=== PATIENT | male | born 1940 | race Caucasian/White ===

== ENCOUNTER 2021-04-10 08:00 | Outpatient (CLI) | payer MEDICARE, OTHER | END 2021-04-10 23:59 | disposition home or self-care (01) | LOC: LAB.S 08:00 | PROVIDERS: ATTEND Physician Assistant | DX: N39.0 Urinary tract infection, site not specified (principal) | CPT/HCPCS: 87086 ==

== ENCOUNTER 2021-07-23 08:08 | Outpatient (CLI) | payer MEDICARE, OTHER | END 2021-07-23 08:09 | disposition critical access hospital (66) | LOC: EMS 08:08 | DX: R41.0 Disorientation, unspecified (principal) | CPT/HCPCS: A0425; A0429 ==

== ENCOUNTER 2021-07-23 08:54 | Emergency (ER) | payer MEDICARE, OTHER ==
[2021-07-23] MEDS: SODIUM CHLORIDE 0.9% 1,000 ML IV STA (09:33)
[2021-07-23 09:36] LABS: BASOPHILS % (AUTO) 0.6 %; EOSINOPHILS # (AUTO) 0.1 10^3/uL (0.0-0.7); EOSINOPHILS % (AUTO) 2.5 %; HCT - HEMATOCRIT 39.5 % (42.0-52.0); HGB - HEMOGLOBIN 13.7 g/dL (14.0-18.0); LYMPHOCYTES # (AUTO) 1.2 10^3/uL (1.5-3.5); LYMPHOCYTES % (AUTO) 23.6 %; MEAN CORPUSCULAR HEMOGLOBIN 32.7 pg (27.0-31.0); MEAN CORPUSCULAR HGB CONC 34.7 g/dL (32.0-36.0); MEAN CORPUSCULAR VOLUME 94.3 fL (80.0-94.0); MEAN PLATELET VOLUME 10.9 fL (7.4-11.4); MONOCYTES # (AUTO) 0.5 10^3/uL (0.0-1.0); NEUTROPHILS # (AUTO) 3.3 10^3/uL (1.5-6.6); NEUTROPHILS % (AUTO) 62.9 %; PLT - PLATELET COUNT 173 10^3/uL (130-450); RED BLOOD COUNT 4.19 10^6/uL (4.70-6.10); RED CELL DISTRIBUTION WIDTH 12.6 % (12.0-15.0); WHITE BLOOD COUNT 5.2 x10^3/uL (4.8-10.8)
[2021-07-23 09:53] LABS: ALBUMIN 3.7 g/dL (3.2-5.5); ALBUMIN/GLOBULIN RATIO 1.5 (1.0-2.2); CALCIUM 8.8 mg/dL (8.5-10.3); CREATININE 0.4 mg/dL (0.6-1.2); MAGNESIUM 1.6 mg/dL (1.7-2.8); POTASSIUM 3.9 mmol/L (3.5-5.0); TOTAL PROTEIN 6.2 g/dL (6.7-8.2)
--- NOTE | 2021-07-23 10:15 | CT Report ---
PROCEDURE: HEAD WO INDICATIONS: general weakness/confused this morning TECHNIQUE: Noncontrast 4.5 mm thick angled axial sections acquired from the foramen magnum to the vertex. For r adiation dose reduction, the following was used: automated exposure control, adjustment of mA and/or kV according to patient size. COMPARISON: None. FINDINGS: Image quality: Excellent. CSF spaces: Basal cisterns are patent. Ventricles and sulci are enlarged, consistent with diffuse p arenchymal volume loss. Areas of focal sulcal enlargement are seen in the right frontoparietal region , the left medial frontal lobe, and the left parieto-occipital sulcus. Findings may secondary to gene ralized volume loss versus congenital abnormality such as arachnoid cysts or less likely areas of chr onic encephalomalacia given the intact appearance of the adjacent cortex. Brain: No midline shift. No acute intracranial hemorrhage or mass effect. Hypodensities in the subco rtical and periventricular white matter most commonly seen in setting of chronic microvascular ischem ic changes. Skull and face: Calvarium and visualized facial bones are intact, without suspicious lesions. Sinuses: Visualized sinuses and mastoids are clear. IMPRESSION: 1.No acute intracranial abnormality. 2.Chronic microvascular ischemic changes. 3.Diffuse cerebral volume loss with ventricular and sulcal prominence. 4.Areas of focal, predominantly interlobar sulcal enlargement bilaterally are most likely due to gene ralized volume loss versus less likely focal extra-axial fluid collections such as arachnoid cysts or areas of chronic encephalomalacia. MRI of the brain could be obtained for further evaluation if nicki cated clinically or if there is continued concern for an acute intracranial process. Reviewed by: Oz Valle MD on 07/23/2021 9:13 AM RUBI Approved by: Oz Valle MD on 07/23/2021 9:13 AM SDDANELLE Station ID: [id number]
--- NOTE | 2021-07-23 11:17 | ED Physician Documentation ---
PD HPI SYNCOPE - Stated complaint Stated Complaint: GLF - Chief complaint Chief Complaint: Neuro - History obtained from History obtained from: Patient, Family (), EMS - History of Present Illness Witnessed: Unwitnessed ( states patient seemed normal last evening. This morning she got out of bed to get some breakfast and went back upstairs few minutes later and patient was on floor in ruiz. His walker was in bathroom and had been in bedroom, so apparently he went to bathroom and fell enroute back without walker.) Timing - onset: Other (she did not hear a thud/fall but was away from the patient only about 10-15 minutes. Patient says he slid off toilet and was unable to get back up, and was scooting into the hallway.) Preceding symptoms: No: Headache, Chest pain, Abdominal pain, Nausea / vomiting Associated symptoms: No: Headache, Chest pain, Palpitations, Nausea / vomiting Contributing factors: Just stood up. No: Recent med change, Decreased PO intake Injury occurred: Fell (he says slumped/slid to the floor getting up from toilet.). No: Head injury, Neck injury Treatment SLUICE TENDER: Fluids Similar symptoms before: Has not had sx before ( states weak at times with getting up, but not unable to get from floor in the past, even with her help.) Recently seen: Not recently seen Review of Systems Constitutional: denies: Fever, Chills Nose: denies: Rhinorrhea / runny nose, Congestion Throat: denies: Sore throat Cardiac: denies: Chest pain / pressure, Palpitations Respiratory: denies: Dyspnea, Cough, Wheezing GI: denies: Abdominal Pain, Nausea, Vomiting : reports: Incontinent Skin: denies: Abrasion (s), Laceration (s) Neurologic: reports: Confused (transiently but no focal weakness nor aphasia.). denies: Focal weakness, Numbness, Headache, LOC Psychiatric: denies: Depressed, Anxiety PD PAST MEDICAL HISTORY - Past Medical History Past Medical History: Yes Cardiovascular: Hypertension, Murmur (he and are not familiar with him having a heart murmur. ) Respiratory: None Endocrine/Autoimmune: Type 2 diabetes Other Past Medical History: Mobility issues - Past Surgical History Past Surgical History: Yes - Allergies Allergies/Adverse Reactions: Allergies Allergy/AdvReac Type Severity Reaction Status Date / Time morphine Allergy Unknown Verified 07/23/21 09:28 - Living Situation Living Situation: reports: With spouse/s.o. Living Arrangement: reports: At home - Social History Does the pt smoke?: No Smoking Status: Never smoker Does the pt drink ETOH?: Yes ETOH Use: Wine Does the pt have substance abuse?: No - Family History Family history: reports: Non contributory, CAD - Immunizations Immunizations are current?: Yes PD ED PE NORMAL - Vitals Vital signs reviewed: Yes - General General: Alert and oriented X 3, No acute distress, Well developed/nourished - HEENT HEENT: Atraumatic, Moist mucous membranes, Pharynx benign - Neck Neck: Supple, no meningeal sign, No adenopathy - Cardiac Cardiac: RRR, Other (3/6 murmur left chest radiating to the back, not to the neck. seems likely mitral. Does not seem aortic. ) - Respiratory Respiratory: Clear bilaterally, Other (no chestwall tenderness) - Abdomen Abdomen: Soft, Non tender - Back Back: No CVA TTP, No spinal TTP - Derm Derm: Normal color, Warm and dry - Extremities Extremities: Normal ROM s pain, No edema, No calf tenderness / cord - Neuro Neuro: Alert and oriented X 3, education analyst 2-12 intact, No motor deficit, No sensory deficit, Normal speech Eye Opening: Spontaneous Motor: Obeys Commands Verbal: Oriented GCS Score: 15 Results - Vitals Vitals: Vital Signs - 24 hr 07/23/21 07/23/21 07/23/21 08:57 09:11 11:40 Temperature 36.0 C L Heart Rate 60 57 L 55 L Respiratory 11 L 17 13 Rate Blood Pressure 128/78 120/60 147/88 H O2 Saturation 95 97 99 Oxygen O2 Source Room air - EKG (time done) 09:21 Rate: Rate (enter#) (8) Rhythm: NSR [place]: Normal Intervals: Normal [place] QRS: Normal Ischemia: Normal ST segments. No: ST elevation c/w ischemia, ST depression - Labs Labs: Laboratory Tests 07/23/21 07/23/21 07/23/21 09:31 09:31 09:31 WBC 5.2 RBC 4.19 L Hgb 13.7 L Hct 39.5 L MCV 94.3 H MCH 32.7 H MCHC 34.7 RDW 12.6 Plt Count 173 MPV 10.9 Neut # (Auto) 3.3 Lymph # (Auto) 1.[address] [place] # (Auto) 0.5 Eos # (Auto) 0.1 Baso # (Auto) 0.0 Absolute Nucleated RBC 0.00 Nucleated RBC % 0.0 Sodium 139 Potassium 3.9 Chloride 99 L Carbon Dioxide 28 Anion Gap 12.0 BUN 15 Creatinine 0.4 L Estimated GFR (MDRD) 208 Glucose 121 H Calcium 8.8 Magnesium 1.6 L Total Bilirubin 1.0 AST 17 ALT 18 Alkaline Phosphatase 48 Troponin I High Sens 2.4 B-Natriuretic Peptide Total Protein 6.2 L Albumin 3.7 Globulin 2.5 Albumin/Globulin Ratio 1.5 Lipase 32 07/23/21 09:31 WBC RBC Hgb Hct MCV MCH MCHC RDW Plt Count MPV Neut # (Auto) Lymph # (Auto) [place] # (Auto) Eos # (Auto) Baso # (Auto) Absolute Nucleated RBC Nucleated RBC % Sodium Potassium Chloride Carbon Dioxide Anion Gap BUN Creatinine Estimated GFR (MDRD) Glucose Calcium Magnesium Total Bilirubin AST ALT Alkaline Phosphatase Troponin I High Sens B-Natriuretic Peptide 43 Total Protein Albumin Globulin Albumin/Globulin Ratio Lipase - Rads (name of study) head CT Radiology: Prelim report reviewed (no acute process. Age rleated volume loss. ), See rad report PD MEDICAL DECISION MAKING - ED course Complexity details: considered differential (seems likely postural/micturation near syncope. He is back to baseline now per patient and . Less sounding TIA. ), d/w patient, d/w family () Departure - Departure Disposition: 01 Home, Self Care Clinical Impression: General weakness, Heart murmur Fall Qualifiers: Encounter type: initial encounter Qualified Code(s): W19.XXXA - Unspecified fall, initial encounter Condition: Stable Record reviewed to determine appropriate education?: Yes Follow-Up: MICAH WOMACK MD [Primary Care Provider] - Comments: Your CT scan does not show any signs of acute bleeding swelling mass. Your blood tests are good without any signs of heart failure, heart attack, major electrolyte problems or anemia. Unclear the cause of your weakness episode this morning. No obvious injuries from your slumping to the floor. At this point I would suggest staying well-hydrated and continue usual medications. I do hear a prominent heart murmur and since you are not aware of this in the past, I would contact your primary care physician to see if they had noted it in the past and if not likely they would want to order an outpatient ultrasound of the heart called an echocardiogram to better evaluate it. I do not believe it is connected to your episode this morning. Discharge Date/Time: 07/23/21 11:58
[2021-07-23 11:42] VITALS: BP 147/88
== END 2021-07-23 11:58 | disposition home or self-care (01) ==
LOC: EDUNIT# → ED 08:54
DX: R53.1 Weakness (principal); R01.1 Cardiac murmur, unspecified; W18.11XA Fall from or off toilet without subsequent striking against object, initial encounter; Y92.002 Bathroom of unspecified non-institutional (private) residence as the place of occurrence of the external cause
CPT/HCPCS: 36415; 80053; 83690; 83735; 83880; 84484; 85025; 93005; 99283; 99284

== ENCOUNTER → 2022-03-29 | Outpatient (CLI) | payer MEDICARE, OTHER | END | disposition EMS.NT | LOC: EMS 08:12 | DX: M25.562 Pain in left knee (principal); M25.561 Pain in right knee; W01.0XXA Fall on same level from slipping, tripping and stumbling without subsequent striking against object, initial encounter; Y92.009 Unspecified place in unspecified non-institutional (private) residence as the place of occurrence of the external cause ==

== ENCOUNTER 2023-02-05 13:04 | Outpatient (CLI) | payer MEDICARE, OTHER | END 2023-02-05 13:05 | disposition EMS.NT | LOC: EMS 13:04 | DX: R53.1 Weakness (principal) ==

== ENCOUNTER 2023-02-05 15:55 | Outpatient (CLI) | payer MEDICARE, OTHER | END 2023-02-05 15:56 | disposition critical access hospital (66) | LOC: EMS 15:55 | DX: R53.1 Weakness (principal); R50.9 Fever, unspecified | CPT/HCPCS: A0425; A0429 ==

== ENCOUNTER 2023-02-05 16:41 | Emergency (ER) | payer MEDICARE, OTHER ==
--- NOTE | 2023-02-05 16:53 | ED Physician Documentation ---
History of Present Illness - Stated complaint Stated Complaint: FEVER - Chief complaint Chief Complaint: General - History obtained from History obtained from: Patient, EMS - Additonal information Additional information: 82-year-old gentleman with history of diabetes on insulin and valvular heart disease presents by EMS with . He is been sick for about 2 days with fever, generalized weakness, urinary frequency and mild cough. PD PAST MEDICAL HISTORY - Past Medical History Cardiovascular: Hypertension, Murmur Respiratory: None Endocrine/Autoimmune: Type 2 diabetes - Past Surgical History Past Surgical History: Yes - Present Medications Home Medications: Ambulatory Orders Medication Instructions Recorded Confirmed Ciprofloxacin HCl [Cipro] 500 mg PO BID #20 tablet 02/05/23 - Allergies Allergies/Adverse Reactions: Allergies Allergy/AdvReac Type Severity Reaction Status Date / Time morphine Allergy Unknown Verified 02/05/23 16:45 - Social History Does the pt smoke?: No Smoking Status: Never smoker Does the pt drink ETOH?: Yes Does the pt have substance abuse?: No - Immunizations Immunizations are current?: Yes PD ED PE NORMAL - Vitals Vital signs reviewed: Yes - General General: Alert and oriented X 3, No acute distress - HEENT HEENT: PERRL, EOMI - Neck Neck: Supple, no meningeal sign, No bony TTP - Cardiac Cardiac: RRR, Other (Loud murmur, systolic heard best at the apex) - Respiratory Respiratory: No respiratory distress, Clear bilaterally - Abdomen Abdomen: Non tender - Extremities Extremities: No edema, No calf tenderness / cord - Neuro Neuro: Alert and oriented X 3, Normal speech Results - Vitals Vitals: Vital Signs - 24 hr 02/05/23 02/05/23 02/05/23 16:45 16:47 16:48 Temperature 37.3 C 37.3 C 37.3 C Heart Rate 88 88 88 Respiratory 18 18 18 Rate Blood Pressure 114/79 114/79 114/79 O2 Saturation 95 95 95 02/05/23 02/05/23 02/05/23 17:18 17:30 18:00 Temperature Heart Rate 84 84 82 Respiratory 18 24 12 Rate Blood Pressure 137/63 H 123/60 139/75 H O2 Saturation 96 96 96 Oxygen O2 Source Room air - EKG (time done) 1652 EKG releavant findings:: EKG personally interpreted by author of this note. Relevant findings are: Rate: Rate (enter#) (85) Rhythm: NSR (w pvc) Intervals: Other (lafb) Ischemia: Non specific changes. No: ST elevation c/w ischemia, ST depression Computer interpretation: Disagree with computer - Labs Labs: Laboratory Tests 02/05/23 02/05/23 02/05/23 16:52 17:01 17:01 WBC 14.7 H RBC 3.77 L Hgb 12.3 L Hct 36.7 L MCV 97.3 H MCH 32.6 H MCHC 33.5 RDW 13.1 Plt Count 137 MPV 11.2 Neut # (Auto) 12.8 H Lymph # (Auto) 0.7 L [place] # (Auto) 1.0 Eos # (Auto) 0.1 Baso # (Auto) 0.0 Absolute Nucleated RBC 0.00 Nucleated RBC % 0.0 Sodium 134 L Potassium 3.5 Chloride 99 L Carbon Dioxide 30 Anion Gap 5.0 L BUN 15 Creatinine 0.6 Estimated GFR (MDRD) 130 Glucose 153 H Lactic Acid Calcium 9.5 Total Bilirubin 0.7 AST 30 ALT 27 Alkaline Phosphatase 79 Total Protein 6.3 L Albumin 3.9 Globulin 2.4 Albumin/Globulin Ratio 1.6 Urine Color Urine Clarity Urine pH Ur Specific [place] Urine Protein Urine Glucose (UA) Urine Ketones Urine Occult Blood Urine Nitrite Urine Bilirubin Urine Urobilinogen Ur Leukocyte Esterase Urine RBC Urine WBC Urine WBC Clumps Ur Squamous Epith Cells Urine Bacteria Urine Culture Comments Nasal Adenovirus (PCR) NOT DETECTED Nasal B. parapertussis DNA (PCR) NOT DETECTED Nasal Coronavir 229E PCR NOT DETECTED Nasal Coronavir HKU1 PCR NOT DETECTED Nasal Coronavir NL63 PCR NOT DETECTED Nasal Coronavir OC43 PCR NOT DETECTED Nasal Enterovir/Rhinovir PCR NOT DETECTED Nasal Influenza B PCR NOT DETECTED Nasal Influenza A PCR NOT DETECTED Nasal Parainfluen 1 PCR NOT DETECTED Nasal Parainfluen 2 PCR NOT DETECTED Nasal Parainfluen 3 PCR NOT DETECTED Nasal Parainfluen 4 PCR NOT DETECTED Nasal RSV (PCR) NOT DETECTED Nasal B.pertussis DNA PCR NOT DETECTED Nasal C.pneumoniae (PCR) NOT DETECTED Darrell Human Metapneumo PCR NOT DETECTED Nasal M.pneumoniae (PCR) NOT DETECTED Nasal SARS-CoV-2 (PCR) NOT DETECTED 02/05/23 02/05/23 17:01 18:05 WBC RBC Hgb Hct MCV MCH MCHC RDW Plt Count MPV Neut # (Auto) Lymph # (Auto) [place] # (Auto) Eos # (Auto) Baso # (Auto) Absolute Nucleated RBC Nucleated RBC % Sodium Potassium Chloride Carbon Dioxide Anion Gap BUN Creatinine Estimated GFR (MDRD) Glucose Lactic Acid 0.9 Calcium Total Bilirubin AST ALT Alkaline Phosphatase Total Protein Albumin Globulin Albumin/Globulin Ratio Urine Color YELLOW Urine Clarity HAZY Urine pH 6.0 Ur Specific [place] >=1.030 H Urine Protein 100 H Urine Glucose (UA) NEGATIVE Urine Ketones TRACE Urine Occult Blood MODERATE H Urine Nitrite POSITIVE H Urine Bilirubin NEGATIVE Urine Urobilinogen 1 (NORMAL) Ur Leukocyte Esterase TRACE H Urine RBC 11-25 H Urine WBC >25 H Urine WBC Clumps PRESENT Ur Squamous Epith Cells RARE Squamous Urine Bacteria Many H Urine Culture Comments INDICATED Nasal Adenovirus (PCR) Nasal B. parapertussis DNA (PCR) Nasal Coronavir 229E PCR Nasal Coronavir HKU1 PCR Nasal Coronavir NL63 PCR Nasal Coronavir OC43 PCR Nasal Enterovir/Rhinovir PCR Nasal Influenza B PCR Nasal Influenza A PCR Nasal Parainfluen 1 PCR Nasal Parainfluen 2 PCR Nasal Parainfluen 3 PCR Nasal Parainfluen 4 PCR Nasal RSV (PCR) Nasal B.pertussis DNA PCR Nasal C.pneumoniae (PCR) Darrell Human Metapneumo PCR Nasal M.pneumoniae (PCR) Nasal SARS-CoV-2 (PCR) - Rads (name of study) Single view chest x-ray is unremarkable Relevant Findings:: Final report received, EMP independent interpretation of test PD Medical Decision Making - ED course ED course: 82-year-old gentleman presents with fever and some urinary frequency and mild cough. Work-up in the emergency department demonstrates leukocytosis with otherwise unremarkable CBC, relatively unremarkable chemistries and negative/normal lactate. Negative respiratory panel and urinalysis positive for infection. He was administered Rocephin here. Both he and his very much wanting to go home. No flank or abdominal pain to suggest urinary obstruction. Departure - Departure Disposition: 01 Home, Self Care Clinical Impression: UTI (urinary tract infection) Qualifiers: Urinary tract infection type: site unspecified Hematuria presence: without hematuria Qualified Code(s): N39.0 - Urinary tract infection, site not specified Fever Qualifiers: Fever type: due to other condition Qualified Code(s): R50.81 - Fever presenting with conditions classified elsewhere Condition: Stable Instructions: ED Fever Control, ED UTI Cystitis Male Prescriptions: Ciprofloxacin HCl [Cipro] 500 mg PO BID #20 tablet Comments: We will culture your urine, the results should be done in 48-72 hours. If an antibiotic change is necessary we will call you. Return if worse in the meantime, flank pain or other new or concerning symptoms. Follow-up with your primary care physician midweek for recheck. Forms: PCP List
[2023-02-05 17:10] LABS: BASOPHILS % (AUTO) 0.3 %; EOSINOPHILS # (AUTO) 0.1 10^3/uL (0.0-0.7); EOSINOPHILS % (AUTO) 0.9 %; HCT - HEMATOCRIT 36.7 % (42.0-52.0); HGB - HEMOGLOBIN 12.3 g/dL (14.0-18.0); LYMPHOCYTES # (AUTO) 0.7 10^3/uL (1.5-3.5); LYMPHOCYTES % (AUTO) 4.6 %; MEAN CORPUSCULAR HEMOGLOBIN 32.6 pg (27.0-31.0); MEAN CORPUSCULAR HGB CONC 33.5 g/dL (32.0-36.0); MEAN CORPUSCULAR VOLUME 97.3 fL (80.0-94.0); MEAN PLATELET VOLUME 11.2 fL (7.4-11.4); MONOCYTES % (AUTO) 6.6 %; NEUTROPHILS # (AUTO) 12.8 10^3/uL (1.5-6.6); NEUTROPHILS % (AUTO) 87.1 %; PLT - PLATELET COUNT 137 10^3/uL (130-450); RED BLOOD COUNT 3.77 10^6/uL (4.70-6.10); RED CELL DISTRIBUTION WIDTH 13.1 % (12.0-15.0); WHITE BLOOD COUNT 14.7 x10^3/uL (4.8-10.8)
[2023-02-05 17:25] LABS: ALBUMIN 3.9 g/dL (3.2-5.5); ALBUMIN/GLOBULIN RATIO 1.6 (1.0-2.2); BILIRUBIN,TOTAL 0.7 mg/dL (0.2-1.0); CALCIUM 9.5 mg/dL (8.5-10.3); CREATININE 0.6 mg/dL (0.6-1.3); POTASSIUM 3.5 mmol/L (3.5-4.5); TOTAL PROTEIN 6.3 g/dL (6.4-8.9)
--- NOTE | 2023-02-05 17:26 | XRAY Report ---
PROCEDURE: Chest 1 View X-Ray INDICATIONS: fever TECHNIQUE: One view of the chest was acquired. COMPARISON: None. FINDINGS: Surgical changes and devices: None. Lungs and pleura: On the semiupright images, no large pneumothorax or large pleural effusions can be seen. No focal infiltrates are seen. Low lung volumes can be seen, causing a crowded appearance to the lung markings. Mediastinum: Mediastinal contours appear normal. Heart size is normal. Bones and chest wall: No suspicious bony lesions. Age-appropriate degenerative changes are seen. O verlying soft tissues appear unremarkable. IMPRESSION: Limited portable chest examination, without an acute abnormality identified. Reviewed by: Mark Bowers MD on 02/05/2023 4:25 PM AKDANELLE Approved by: Mark Bowers MD on 02/05/2023 4:25 PM AKDANELLE Station ID: [id number]
[2023-02-05 18:00] LABS: B. PARAPERTUSSIS- RESP PCR PAN NOT DETECTED; B. PERTUSSIS- RESP PCR PANEL NOT DETECTED; C. PNEUMONIAE- RESP PCR PANEL NOT DETECTED; CORONAVIRUS 229E-RESP PCR NOT DETECTED; CORONAVIRUS HKU1-RESP PCR NOT DETECTED; CORONAVIRUS NL63-RESP PCR NOT DETECTED; CORONAVIRUS OC43-RESP PCR NOT DETECTED; HUMAN METAPNEUMOVIRUS NOT DETECTED; INFLUENZA A- RESP PCR PANEL NOT DETECTED; INFLUENZA B - RESP PCR PANEL NOT DETECTED; M. PNEUMONIAE- RESP PCR PANEL NOT DETECTED; PARAINFLUENZA VIRUS 1 NOT DETECTED; PARAINFLUENZA VIRUS 2 NOT DETECTED; PARAINFLUENZA VIRUS 3 NOT DETECTED; PARAINFLUENZA VIRUS 4 NOT DETECTED; RHINOVIRUS/ENTEROVIRUS NOT DETECTED; RSV- RESP PCR PANEL NOT DETECTED; SARS-CoV-2 -RESP PCR PANEL NOT DETECTED
[2023-02-05 18:13] LABS: BILIRUBIN,URINE NEGATIVE (NEGATIVE); GLUCOSE, URINE (UA) NEGATIVE (NEGATIVE); KETONES,URINE (UA) TRACE mg/dL (NEGATIVE); LEUKOCYTE ESTERASE, URINE TRACE (NEGATIVE); NITRITE,URINE POSITIVE (NEGATIVE); OCCULT BLOOD,URINE MODERATE (NEGATIVE); PROTEIN,URINE 100 mg/dL (NEGATIVE); UROBILINOGEN,URINE 1 (NORMAL) E.U./dL (NORMAL)
[2023-02-05 18:20] LABS: BACTERIA,URINE Many /HPF (None Seen); CLARITY,URINE HAZY (CLEAR); SQUAMOUS EPITHELIAL CELL,UR RARE Squamous (<= Few); WBC CLUMPS,URINE PRESENT; WBC,URINE >25 /HPF (0-3)
[2023-02-05] MEDS ORDERED: cefTRIAXone 1 GM VIAL IVP STA (18:23)
[2023-02-05 19:25] VITALS: BP 127/82; O2SAT 97
== END 2023-02-05 19:30 | disposition home or self-care (01) ==
LOC: EDUNIT# → ED 16:41
DX: N39.0 Urinary tract infection, site not specified (principal); R50.81 Fever presenting with conditions classified elsewhere; E11.9 Type 2 diabetes mellitus without complications
CPT/HCPCS: 36415; 80053; 81001; 83605; 85025; 87040; 87086; 87150; 87181; 87633; 93005; 96374; 99284

== ENCOUNTER 2023-02-07 07:31 | Outpatient (CLI) | payer MEDICARE, OTHER | END 2023-02-07 23:59 | disposition critical access hospital (66) | LOC: EMS 07:31 | DX: R82.79 Other abnormal findings on microbiological examination of urine (principal) | CPT/HCPCS: A0425; A0428 ==

== ENCOUNTER 2023-02-07 08:15 | Emergency (ER) | payer MEDICARE, OTHER ==
[2023-02-07 08:58] LABS: BASOPHILS % (AUTO) 0.3 %; EOSINOPHILS % (AUTO) 0.5 %; HCT - HEMATOCRIT 37.3 % (42.0-52.0); HGB - HEMOGLOBIN 12.5 g/dL (14.0-18.0); LYMPHOCYTES # (AUTO) 0.7 10^3/uL (1.5-3.5); LYMPHOCYTES % (AUTO) 11.4 %; MEAN CORPUSCULAR HEMOGLOBIN 32.6 pg (27.0-31.0); MEAN CORPUSCULAR HGB CONC 33.5 g/dL (32.0-36.0); MEAN CORPUSCULAR VOLUME 97.1 fL (80.0-94.0); MEAN PLATELET VOLUME 11.4 fL (7.4-11.4); MONOCYTES # (AUTO) 0.9 10^3/uL (0.0-1.0); MONOCYTES % (AUTO) 15.3 %; NEUTROPHILS # (AUTO) 4.5 10^3/uL (1.5-6.6); NEUTROPHILS % (AUTO) 72.2 %; PLT - PLATELET COUNT 146 10^3/uL (130-450); RED BLOOD COUNT 3.84 10^6/uL (4.70-6.10); RED CELL DISTRIBUTION WIDTH 13.1 % (12.0-15.0); WHITE BLOOD COUNT 6.2 x10^3/uL (4.8-10.8)
--- NOTE | 2023-02-07 09:09 | ED Physician Documentation ---
History of Present Illness - Stated complaint Stated Complaint: ABNORMAL LABS - Chief complaint Chief Complaint: General - History obtained from History obtained from: Patient, Family - Additonal information Additional information: Patient is an 82-year-old male presenting for evaluation of abnormal labs. He was seen in our emergency department 2 days ago and diagnosed with a urinary tract infection. Yesterday one of his blood cultures is positive for E. coli as is his urine and he was notified by charge nurse. He was directed to come back to the emergency department for evaluation. states that they were not able to get here yesterday so she called 911 today to bring him back in for reevaluation. Per patient and his he has been doing better over the past 2 days since starting the antibiotic, Ciprofloxacin. He no longer is weak as he was on Monday. He has not had fevers. No vomiting or diarrhea. reports that patient has intermittent confusion which appears to be at baseline today and is not any worse. Review of Systems Constitutional: denies: Fever Cardiac: denies: Chest pain / pressure Respiratory: denies: Dyspnea GI: denies: Abdominal Pain : denies: Dysuria Neurologic: denies: Syncope PD PAST MEDICAL HISTORY - Past Medical History Cardiovascular: Hypertension, Murmur Respiratory: None Endocrine/Autoimmune: Type 2 diabetes - Past Surgical History Past Surgical History: Yes - Present Medications Home Medications: Ambulatory Orders Medication Instructions Recorded Confirmed Ciprofloxacin HCl [Cipro] 500 mg PO BID #20 tablet 02/05/23 - Allergies Allergies/Adverse Reactions: Allergies Allergy/AdvReac Type Severity Reaction Status Date / Time morphine Allergy Unknown Verified 02/05/23 16:45 - Social History Does the pt smoke?: No Smoking Status: Never smoker Does the pt drink ETOH?: Yes Does the pt have substance abuse?: No - Immunizations Immunizations are current?: Yes PD ED PE NORMAL - General General: Alert and oriented X 3, No acute distress, Well developed/nourished - HEENT HEENT: Atraumatic, Moist mucous membranes, Pharynx benign - Neck Neck: Supple, no meningeal sign - Cardiac Cardiac: RRR, No murmur - Respiratory Respiratory: No respiratory distress, Clear bilaterally - Abdomen Abdomen: Soft, Non tender - Derm Derm: Warm and dry - Neuro Neuro: Alert and oriented X 3, No motor deficit, Normal speech Results - Vitals Vitals: Vital Signs - 24 hr 02/07/23 02/07/23 02/07/23 08:26 11:22 11:55 Temperature 36.4 C L Heart Rate 62 64 64 Respiratory 18 16 Rate Blood Pressure 157/73 H 149/91 H 170/66 H O2 Saturation 97 97 99 Oxygen O2 Source Room air - Labs Labs: Laboratory Tests 02/07/23 02/07/23 02/07/23 08:42 08:42 08:42 WBC 6.2 RBC 3.84 L Hgb 12.5 L Hct 37.3 L MCV 97.1 H MCH 32.6 H MCHC 33.5 RDW 13.1 Plt Count 146 MPV 11.4 Neut # (Auto) 4.5 Lymph # (Auto) 0.7 L [place] # (Auto) 0.9 Eos # (Auto) 0.0 Baso # (Auto) 0.0 Absolute Nucleated RBC 0.00 Nucleated RBC % 0.0 Sodium 137 Potassium 4.0 Chloride 100 L Carbon Dioxide 31 Anion Gap 6.0 BUN 16 Creatinine 0.6 Estimated GFR (MDRD) 130 Glucose 152 H Lactic Acid 0.9 Calcium 9.4 Total Bilirubin 0.6 AST 31 ALT 38 Alkaline Phosphatase 163 H Total Protein 6.4 Albumin 3.8 Globulin 2.6 Albumin/Globulin Ratio 1.5 Lipase 11 PD Medical Decision Making - ED course Complexity details: reviewed results, re-evaluated patient, d/w patient, d/w family ED course: Patient is an 82-year-old male recently diagnosed with a urinary tract infection and asked to come back for reevaluation for positive blood culture. Patient is afebrile with stable vital signs. He states he is feeling better and also states he appears much better since starting the antibiotic. Repeat labs including CBC and lactic are unremarkable. Per the hospitalist, gram-negative bacteremia does not necessarily require admission to the hospital if patient is doing better and source is identified (vs Gram-positive bacteremia which would require admission). In this case I do think that patient is better and we do have the source of the infection. He is on an appropriate antibiotic which has been prescribed for course of 10 days. I do not think he requires admission at this time. Patient and counseled to continue with antibiotics and strict return precautions for any worsening symptoms. Departure - Departure Disposition: 01 Home, Self Care Clinical Impression: E-coli UTI, Positive blood culture Condition: Stable Instructions: ED UTI Cystitis Male Comments: You were evaluated after being called back to the emergency department because one of your blood cultures was positive for an infection. It is reassuring that you are feeling better today and recheck of your labs are also improved. We have also repeated the blood cultures. Please complete the course of ciprofloxacin Which is the antibiotic you are prescribed. You may consider taking a probiotic. Return to the emergency department with any worsening symptoms. Forms: PCP List Discharge Date/Time: 02/07/23 11:56
[2023-02-07 09:13] LABS: ALBUMIN 3.8 g/dL (3.2-5.5); ALBUMIN/GLOBULIN RATIO 1.5 (1.0-2.2); BILIRUBIN,TOTAL 0.6 mg/dL (0.2-1.0); CALCIUM 9.4 mg/dL (8.5-10.3); CREATININE 0.6 mg/dL (0.6-1.3); TOTAL PROTEIN 6.4 g/dL (6.4-8.9)
[2023-02-07] MEDS ORDERED: cefTRIAXone 2 GM in SODIUM CHLORIDE 0.9% MINIBAG 100 ML IV STA (09:31)
[2023-02-07 11:58] VITALS: BP 170/66; O2SAT 99
== END 2023-02-07 11:56 | disposition home or self-care (01) ==
LOC: EDUNIT# → ED 08:15
DX: A49.8 Other bacterial infections of unspecified site (principal); E11.9 Type 2 diabetes mellitus without complications; I10 Essential (primary) hypertension
CPT/HCPCS: 36415; 80053; 83605; 83690; 85025; 87040; 96365; 99283

== ENCOUNTER 2023-02-08 18:59 | Outpatient (CLI) | payer MEDICARE, OTHER | END 2023-02-08 19:00 | disposition critical access hospital (66) | LOC: EMS 18:59 | DX: R10.2 Pelvic and perineal pain (principal); R33.9 Retention of urine, unspecified | CPT/HCPCS: A0425; A0429 ==

== ENCOUNTER 2023-02-08 19:50 | Emergency (ER) | payer MEDICARE, OTHER ==
--- NOTE | 2023-02-08 20:56 | ED Physician Documentation ---
History of Present Illness - Stated complaint Stated Complaint: - Chief complaint Chief Complaint: Abd Pain - History obtained from History obtained from: Patient, Family () - Additonal information Additional information: 82yM With remote history of kidney stones, recent diagnosis of UTI 4 days ago with bounce back yesterday for e coli bacteremia presents with lower pelvic pain and sensation of inability to urinate easily today. Patient has not had fever since a few days ago. upon his repeat visit to the ED yesterday the hospitalist felt that he did not require admission and so he has been continuing his course of ciprofloxacin at home. Denies back pain or sharp intermittent abdominal pain to suggest kidney stones. Denies hematuria. PD PAST MEDICAL HISTORY - Past Medical History Cardiovascular: Hypertension, Murmur Respiratory: None Endocrine/Autoimmune: Type 2 diabetes - Past Surgical History Past Surgical History: Yes - Present Medications Home Medications: Ambulatory Orders Medication Instructions Recorded Confirmed Ciprofloxacin HCl [Cipro] 500 mg PO BID #20 tablet 02/05/23 - Allergies Allergies/Adverse Reactions: Allergies Allergy/AdvReac Type Severity Reaction Status Date / Time morphine Allergy Unknown Verified 02/08/23 20:04 - Social History Does the pt smoke?: No Smoking Status: Never smoker Does the pt drink ETOH?: Yes Does the pt have substance abuse?: No - Immunizations Immunizations are current?: Yes PD ED PE NORMAL - Vitals Vital signs reviewed: Yes - General General: Alert and oriented X 3, No acute distress, Well developed/nourished - HEENT HEENT: Atraumatic, PERRL, EOMI - Neck Neck: Supple, no meningeal sign - Cardiac Cardiac: RRR - Respiratory Respiratory: No respiratory distress, Clear bilaterally - Abdomen Abdomen: Non tender, Non distended, Other (lower abdominal discomfort to palpation. POCUS shows mild bladder wall thickening. urinary bladder nondistended) Results - Vitals Vitals: Vital Signs - 24 hr 02/08/23 02/08/23 02/08/23 19:59 20:00 20:30 Temperature 36 C L Heart Rate 62 59 L 55 L Respiratory 18 16 16 Rate Blood Pressure 169/73 H 175/74 H 176/72 H O2 Saturation 99 100 98 02/08/23 22:00 Temperature Heart Rate 58 L Respiratory 16 Rate Blood Pressure 146/66 H O2 Saturation 100 Oxygen O2 Source Room air - Labs Labs: Laboratory Tests 1002/08/23 02/08/23 20:58 20:58 21:21 WBC 5.3 RBC 3.85 L Hgb 12.4 L Hct 36.3 L MCV 94.3 H MCH 32.2 H MCHC 34.2 RDW 12.7 Plt Count 179 MPV 11.0 Neut # (Auto) 3.5 Lymph # (Auto) 1.0 L [place] # (Auto) 0.8 Eos # (Auto) 0.0 Baso # (Auto) 0.0 Absolute Nucleated RBC 0.00 Nucleated RBC % 0.0 Sodium 135 Potassium 3.4 L Chloride 99 L Carbon Dioxide 28 Anion Gap 8.0 BUN 11 Creatinine 0.4 L Estimated GFR (MDRD) 207 Glucose 169 H Calcium 9.0 Total Bilirubin 0.5 AST 38 ALT 55 Alkaline Phosphatase 201 H Total Protein 6.2 L Albumin 3.5 Globulin 2.7 Albumin/Globulin Ratio 1.3 Lipase 20 Urine Color YELLOW Urine Clarity CLEAR Urine pH 7.0 Ur Specific [place] 1.010 Urine Protein NEGATIVE Urine Glucose (UA) NEGATIVE Urine Ketones 15 H Urine Occult Blood TRACE-INTA Urine Nitrite NEGATIVE Urine Bilirubin NEGATIVE Urine Urobilinogen 0.2 (NORMAL) Ur Leukocyte Esterase NEGATIVE Ur Microscopic Review NOT INDICATED Urine Culture Comments NOT INDICATED PD Medical Decision Making - ED course ED course: 82yM with remote history of renal stones and recently diagnosed uti with e coli bacteremia, on day 4 of antibiotics, presents with sensation of inability to void as well as persistent pelvic pain. His kidney function has been normal on his last two visits this week. plan to repeat abdominal panel to recheck kidney function. will also repeat cbc, u/a, and have patient undergo ct to ensure no stones blocking the urinary tract. will reevaluate. labs stable from previous. u/a clean. BL nonobstructing renal stones on ct. discussed incidental findings with patient and as well. plan to f/u outpatient with pcp. return precautions given. Departure - Departure Disposition: 01 Home, Self Care Clinical Impression: UTI (urinary tract infection), Urinary urgency Condition: Stable Instructions: ED UTI Cystitis Male Comments: You were seen in the emergency department for evaluation of pelvic pain and issues urinating. Your labs and ct looked ok as discussed and you should finish the course of your antibiotics. Please follow-up with your primary care provider and return to the emergency department if you have any new or worsening symptoms or other concerns. Forms: PCP List
[2023-02-08 21:05] LABS: BASOPHILS % (AUTO) 0.2 %; EOSINOPHILS % (AUTO) 0.6 %; HCT - HEMATOCRIT 36.3 % (42.0-52.0); HGB - HEMOGLOBIN 12.4 g/dL (14.0-18.0); LYMPHOCYTES % (AUTO) 18.2 %; MEAN CORPUSCULAR HEMOGLOBIN 32.2 pg (27.0-31.0); MEAN CORPUSCULAR HGB CONC 34.2 g/dL (32.0-36.0); MEAN CORPUSCULAR VOLUME 94.3 fL (80.0-94.0); MONOCYTES # (AUTO) 0.8 10^3/uL (0.0-1.0); MONOCYTES % (AUTO) 15.2 %; NEUTROPHILS # (AUTO) 3.5 10^3/uL (1.5-6.6); NEUTROPHILS % (AUTO) 64.9 %; PLT - PLATELET COUNT 179 10^3/uL (130-450); RED BLOOD COUNT 3.85 10^6/uL (4.70-6.10); RED CELL DISTRIBUTION WIDTH 12.7 % (12.0-15.0); WHITE BLOOD COUNT 5.3 x10^3/uL (4.8-10.8)
[2023-02-08 21:25] LABS: BILIRUBIN,URINE NEGATIVE (NEGATIVE); GLUCOSE, URINE (UA) NEGATIVE (NEGATIVE); KETONES,URINE (UA) 15 mg/dL (NEGATIVE); LEUKOCYTE ESTERASE, URINE NEGATIVE (NEGATIVE); NITRITE,URINE NEGATIVE (NEGATIVE); OCCULT BLOOD,URINE TRACE-INTA (NEGATIVE); PROTEIN,URINE NEGATIVE (NEGATIVE); UROBILINOGEN,URINE 0.2 (NORMAL) E.U./dL (NORMAL)
[2023-02-08 21:26] LABS: CLARITY,URINE CLEAR (CLEAR)
[2023-02-08 21:49] LABS: ALBUMIN 3.5 g/dL (3.2-5.5); ALBUMIN/GLOBULIN RATIO 1.3 (1.0-2.2); BILIRUBIN,TOTAL 0.5 mg/dL (0.2-1.0); CREATININE 0.4 mg/dL (0.6-1.3); POTASSIUM 3.4 mmol/L (3.5-4.5); TOTAL PROTEIN 6.2 g/dL (6.4-8.9)
--- NOTE | 2023-02-08 23:39 | CT Report ---
PROCEDURE: ABDOMEN/PELVIS WO INDICATIONS: uti, hx kidney stones, unable to urinate TECHNIQUE: A CT scan of the abdomen and pelvis was performed without the use of intravenous contrast. Images we re recorded and evaluated at appropriate window settings. Reformats: coronal and sagittal. For radiat ion dose reduction, the following was used: automated exposure control, adjustment of mA and/or kV ac cording to patient size. COMPARISON: None. FINDINGS: Image quality: Excellent. Lung bases and heart: Mild bibasilar dependent atelectasis is seen. Heart size is enlarged, no perica rdial effusion. Moderate atherosclerotic disease is noted.. Liver: No solid mass. Gallbladder and biliary tree: No radiopaque stones or wall thickening. No biliary dilation. Spleen: No splenomegaly. Pancreas: No pancreatic ductal dilation. Adrenals: No adrenal nodule. Kidneys and ureters: Bilateral nonobstructing renal calculi are seen. Largest stone measures 7 mm in size in midpole right kidney. 6.7 x 6.8 cm simple appearing right peripelvic renal cyst is noted seri es 2 image 48. Lobulated simple appearing left peripelvic renal cyst is also seen measures 6.2 x 4.5 cm in size. There is no hydronephrosis or hydroureter. Mild bilateral perinephric fat stranding is se en. Bowel and peritoneum: No bowel distension. No pathologic free fluid. The appendix is visualized and i s within normal limits. Mild sigmoid diverticulosis is seen without sigmoid colon wall thickening or mesenteric fat stranding. Lymph nodes: No central or retroperitoneal adenopathy. Vessels: No infrarenal aortic aneurysm. [id number] atherosclerotic calcifications are noted in abdominal aorta and bilateral iliac arteries. PELVIS Reproductive organs: Unremarkable. Bladder: No wall thickness, accounting for underdistention. Pelvic lymph nodes: No pelvic adenopathy by size criteria. Bones: No aggressive osseous abnormality. Chronic appearing anterior wedge compression deformity at L 1 level is seen with up to 50% loss of L1 vertebral body height. Degenerative disc disease throughout lumbar spine is seen. 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 Other: No significant ventral or inguinal hernia. IMPRESSION: 1. Bilateral nonobstructing renal calculi and large bilateral renal cysts as above. No hydronephrosis or hydroureter. Normal-appearing urinary bladder. 2. Nonspecific mild bilateral perinephric fat stranding. Pyelonephritis cannot be excluded. 3. No bowel obstruction and no abnormal bowel wall thickening. Normal appendix. Mild sigmoid divertic ulosis without CT evidence of acute diverticulitis. No abscess collection. No free fluid or free air. 4. Degenerative disc disease throughout lower thoracic and lumbar spine with chronic appearing anteri or wedge compression deformity at L1 level as above. Reviewed by: Peter Wiggins MD on 02/08/2023 11:38 PM PDT Approved by: Peter Wiggins MD on 02/08/2023 11:38 PM PDT Station ID: [id number]
[2023-02-09 02:03] VITALS: BP 148/81; O2SAT 98
== END 2023-02-09 01:58 | disposition home or self-care (01) ==
LOC: EDUNIT# → ED 19:50
DX: N39.0 Urinary tract infection, site not specified (principal); R39.15 Urgency of urination; N20.0 Calculus of kidney; Z87.442 Personal history of urinary calculi
CPT/HCPCS: 36415; 80053; 81001; 81003; 83690; 85025; 87086; 99283; 99284

== ENCOUNTER 2023-02-17 22:29 | Emergency (ER) | payer MEDICARE, OTHER ==
[2023-02-17 22:41] VITALS: BP 160/90; O2SAT 97
[2023-02-17 23:10] LABS: BILIRUBIN,URINE NEGATIVE (NEGATIVE); GLUCOSE, URINE (UA) NEGATIVE (NEGATIVE); KETONES,URINE (UA) NEGATIVE (NEGATIVE); LEUKOCYTE ESTERASE, URINE NEGATIVE (NEGATIVE); NITRITE,URINE NEGATIVE (NEGATIVE); OCCULT BLOOD,URINE TRACE-INTA (NEGATIVE); PROTEIN,URINE NEGATIVE (NEGATIVE); UROBILINOGEN,URINE 0.2 (NORMAL) E.U./dL (NORMAL)
[2023-02-17 23:26] LABS: CLARITY,URINE CLEAR (CLEAR)
[2023-02-17 23:52] LABS: BASOPHILS % (AUTO) 0.5 %; EOSINOPHILS # (AUTO) 0.1 10^3/uL (0.0-0.7); HCT - HEMATOCRIT 34.4 % (42.0-52.0); HGB - HEMOGLOBIN 11.3 g/dL (14.0-18.0); LYMPHOCYTES # (AUTO) 1.3 10^3/uL (1.5-3.5); LYMPHOCYTES % (AUTO) 14.8 %; MEAN CORPUSCULAR HEMOGLOBIN 31.6 pg (27.0-31.0); MEAN CORPUSCULAR HGB CONC 32.8 g/dL (32.0-36.0); MEAN CORPUSCULAR VOLUME 96.1 fL (80.0-94.0); MEAN PLATELET VOLUME 10.6 fL (7.4-11.4); MONOCYTES # (AUTO) 0.8 10^3/uL (0.0-1.0); MONOCYTES % (AUTO) 9.4 %; NEUTROPHILS # (AUTO) 6.5 10^3/uL (1.5-6.6); NEUTROPHILS % (AUTO) 74.1 %; PLT - PLATELET COUNT 265 10^3/uL (130-450); RED BLOOD COUNT 3.58 10^6/uL (4.70-6.10); RED CELL DISTRIBUTION WIDTH 13.2 % (12.0-15.0); WHITE BLOOD COUNT 8.7 x10^3/uL (4.8-10.8)
[2023-02-18 00:07] LABS: ALBUMIN 3.8 g/dL (3.2-5.5); ALBUMIN/GLOBULIN RATIO 1.7 (1.0-2.2); BILIRUBIN,TOTAL 0.5 mg/dL (0.2-1.0); CALCIUM 9.2 mg/dL (8.5-10.3); CREATININE 0.5 mg/dL (0.6-1.3); POTASSIUM 3.6 mmol/L (3.5-4.5); TOTAL PROTEIN 6.1 g/dL (6.4-8.9)
--- NOTE | 2023-02-18 00:25 | ED Physician Documentation ---
PD HPI MALE - Stated complaint Stated Complaint: - Chief complaint Chief Complaint: Ext Problem - History obtained from History obtained from: Patient - Additional information Additional information: 82-year-old male presents for evaluation of inability to urinate as well as burning at the tip of his penis. Patient was recently treated for urinary tract infection with gram-negative bacteremia. Patient completed his course of ciprofloxacin with his last dose of medication yesterday. Patient states that he was feeling back to normal until today when his symptoms started. They are concerned that he may have another urinary tract infection. He is only been able to make tiny dribbles of urine into briefs that he wears. Review of Systems Constitutional: denies: Fever, Chills GI: reports: Abdominal Pain (suprapubic discomfort). denies: Nausea, Vomiting : reports: Dysuria, Unable to Void. denies: Frequency, Hesitancy Skin: denies: Rash, Lesions, Abrasion (s) Neurologic: denies: Generalized weakness, Focal weakness, Numbness PD PAST MEDICAL HISTORY - Past Medical History Past Medical History: Yes Cardiovascular: Hypertension, Murmur Respiratory: None Endocrine/Autoimmune: Type 2 diabetes GI: Other Other Past Medical History: Recent UTI - Past Surgical History Past Surgical History: Yes - Present Medications Home Medications: Ambulatory Orders Medication Instructions Recorded Confirmed Ciprofloxacin HCl [Cipro] 500 mg PO BID #20 tablet 02/05/23 Liraglutide [Victoza 2-Demar] 0.6 mg SUBQ DAILY 02/17/23 02/17/23 Lisinopril [Zestril] 20 mg PO BID 02/17/23 02/17/23 Metformin HCl [Metformin ER 500 mg PO BID 02/17/23 02/17/23 Osmotic] Metoprolol Succinate [Toprol Xl] 50 mg PO BID 02/17/23 02/17/23 Pravastatin [Pravachol] 10 mg PO DAILY 02/17/23 02/17/23 - Allergies Allergies/Adverse Reactions: Allergies Allergy/AdvReac Type Severity Reaction Status Date / Time morphine Allergy Unknown Verified 02/17/23 22:40 - Social History Does the pt smoke?: No Smoking Status: Never smoker Does the pt drink ETOH?: Yes Does the pt have substance abuse?: No - Immunizations Immunizations are current?: Yes - POLST Patient has POLST: No PD ED PE NORMAL - Vitals Vital signs reviewed: Yes - General General: Alert and oriented X 3, No acute distress, Well developed/nourished - HEENT HEENT: Atraumatic - Cardiac Cardiac: RRR - Respiratory Respiratory: No respiratory distress, Clear bilaterally - Abdomen Abdomen: Soft, Other (minimal suprapubic discomfort to deep palpation) - Derm Derm: Normal color, Warm and dry, No rash - Extremities Extremities: No deformity, No tenderness to palpate, Normal ROM s pain - Neuro Neuro: Alert and oriented X 3, 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, No motor deficit, Normal speech Results - Vitals Vitals: Vital Signs - 24 hr 02/17/23 22:36 Temperature 36.7 C Heart Rate 75 Respiratory 18 Rate Blood Pressure 160/90 H O2 Saturation 97 Oxygen O2 Source Room air - Labs Labs: Laboratory Tests 02/17/23 02/17/23 02/17/23 23:00 23:40 23:40 WBC 8.7 RBC 3.58 L Hgb 11.3 L Hct 34.4 L MCV 96.1 H MCH 31.6 H MCHC 32.8 RDW 13.2 Plt Count 265 MPV 10.6 Neut # (Auto) 6.5 Lymph # (Auto) 1.3 L [place] # (Auto) 0.8 Eos # (Auto) 0.1 Baso # (Auto) 0.0 Absolute Nucleated RBC 0.00 Nucleated RBC % 0.0 Sodium 136 Potassium 3.6 Chloride 102 Carbon Dioxide 31 Anion Gap 3.0 L BUN 14 Creatinine 0.5 L Estimated GFR (MDRD) 160 Glucose 200 H Calcium 9.2 Total Bilirubin 0.5 AST 17 ALT 32 Alkaline Phosphatase 95 Total Protein 6.1 L Albumin 3.8 Globulin 2.3 Albumin/Globulin Ratio 1.7 Urine Color YELLOW Urine Clarity CLEAR Urine pH 6.0 Ur Specific [place] 1.015 Urine Protein NEGATIVE Urine Glucose (UA) NEGATIVE Urine Ketones NEGATIVE Urine Occult Blood TRACE-INTA Urine Nitrite NEGATIVE Urine Bilirubin NEGATIVE Urine Urobilinogen 0.2 (NORMAL) Ur Leukocyte Esterase NEGATIVE Ur Microscopic Review NOT INDICATED Urine Culture Comments NOT INDICATED PD Medical Decision Making - ED course Complexity details: reviewed old records, reviewed results, re-evaluated patient, considered differential, d/w patient, d/w family ED course: Well-appearing patient with dysuria and urinary retention shortly after being treated for urinary tract infection. Physical exam is unremarkable, patient does have wet briefs in place with minor irritation around the head of the penis. This is likely from moisture as states that his mobility has declined recently and he frequently sits in soiled briefs. We will repeat labs and urinalysis. Laboratory work is reviewed, blood work is unchanged from previous. Urinalysis is negative for any signs of infection. Nursing staff placed Montano catheter with removal of 600 cc of clear yellow urine. Patient does likely have some component of retention contributing to his symptoms as well as his incontinence. Shared decision making had with patient and at bedside. Patient is already on Flomax and is comfortable with the Montano catheter in place. They elected to keep the catheter in place for urine drainage. Local urology referral provided, states that patient has seen urology at [facility] in the past and they will also call that office to try and schedule a follow-up appointment. They were instructed to continue to take daily Flomax and Montano care instructions discussed with nursing staff at bedside. Departure - Departure Disposition: 01 Home, Self Care Clinical Impression: Urinary retention Condition: Stable Instructions: Catheter Indwelling Urinary Dc, Leg Bag Care Dc Follow-Up: Josh Ramirez MD [Provider Admit Priv/Credential] - Forms: PCP List Discharge Date/Time: 02/18/23 01:00
== END 2023-02-18 01:00 | disposition home or self-care (01) ==
LOC: ED 22:29
DX: R33.9 Retention of urine, unspecified (principal); R30.0 Dysuria
CPT/HCPCS: 36415; 51702; 80053; 81001; 81003; 85025; 87086; 99283

== ENCOUNTER 2023-10-19 04:08 | Outpatient (CLI) | payer MEDICARE, OTHER | END 2023-10-19 23:59 | disposition EMS.NT | LOC: EMS 04:08 | DX: Z03.89 Encounter for observation for other suspected diseases and conditions ruled out (principal) ==

== ENCOUNTER 2023-11-01 08:00 | Outpatient (CLI) | payer MEDICARE, OTHER | END 2023-11-01 23:59 | disposition home or self-care (01) | LOC: LAB.N 08:00 | PROVIDERS: ATTEND Registered Nurse | DX: N30.00 Acute cystitis without hematuria (principal); R41.0 Disorientation, unspecified; R30.0 Dysuria; R33.9 Retention of urine, unspecified | CPT/HCPCS: 87086 ==